=== PATIENT | male | born 1975 | race Caucasian/White ===

== ENCOUNTER 2020-01-15 18:30 | Emergency (ER) | payer OTHER, SELFPAY ==
[2020-01-15 18:35] VITALS: BP 132/88; PULSE 80; RESP 16; TEMP 36.8; O2SAT 99
[2020-01-15 19:09] LABS: Basophils Percent Auto 0.4 % (0.2-1.2); Eosinophils Absolute Auto 0.2 K/mm3 (0-0.3); Hematocrit 38.1 % (42.0-52.0); Hemoglobin 13.2 g/dL (14.0-18.0); Immature Granulocyte Absolute 0.02 K/mm3 (0.00-0.031); Immature Granulocyte Percent A 0.3 % (0-0.5); Lymphocytes Absolute Auto 3.22 K/mm3 (0.9-3.2); Lymphocytes Percent Auto 41.3 % (18.3-44.2); Mean Corpuscular HGB Conc 34.6 g/dl (32-36); Mean Corpuscular Hemoglobin 35.7 pg (26-34); Mean Platelet Volume 9.6 fl (7.4-10.4); Monocytes Absolute Auto 0.9 K/mm3 (0.1-0.6); Monocytes Percent Auto 11.2 % (2.6-8.5); Neutrophils Absolute Auto 3.4 K/mm3 (1.3-6.7); Neutrophils Percent Auto 43.8 % (45.5-73.1); Platelet Count Result 255 k/mm3 (150-375); Red Cell Distribution Width 13.2 % (11.5-14.5); White Blood Count 7.8 K/mm3 (4.5-10.0)
--- NOTE | 2020-01-15 19:15 | ED.PSYCH ---
HPI - Psych General Chief Complaint: Psychiatric Symptoms Stated Complaint: SI Time Seen by Provider: 01/15/20 19:11 Source: patient History of Present Illness HPI Narrative: Pt c/o suicidal thoughts started a few days ago. Pt also states that a group of men are after him, but now denies this. Pt denies homicidal ideations. Pt admits to auditory hallucinations. Relieving factors: none Exacerbating factors: none Context: recent drug abuse Associated symptoms: denies other symptoms Treatments prior to arrival: none Details of plan: no plan Related Data Allergies Allergy/AdvReac Type Severity Reaction Status Date / Time codeine Allergy Mild Verified 04/05/09 20:05 Review of Systems Review of Systems: All systems reviewed & are unremarkable except as noted in HPI and below Constitutional: Constitutional: Denies body ache(s), Denies chills, Denies excessive sweating, Denies fatigue, Denies fever(s), Denies headache(s), Denies lethargy, Denies malaise, Denies weakness and Denies weight loss Eyes: Eyes: Denies blurry vision, Denies change in vision and Denies loss of vision ENT: Denies dizziness, Denies ear discharge, Denies headache(s), Denies lip swelling, Denies epistaxis, Denies nasal congestion, Denies neck pain, Denies throat swelling and Denies tongue swelling Cardiovascular: Cardiovascular: Denies chest pain, Denies chest pain at rest, Denies chest pain with activity, Denies diaphoresis, Denies rapid heart rate, Denies edema, Denies irregular heart rhythm, Denies lightheadedness, Denies palpitations, Denies dyspnea and Denies dyspnea on exertion Respiratory: Respiratory: Denies chest congestion, Denies cough, Denies hemoptysis, Denies dyspnea and Denies dyspnea on exertion Gastrointestinal: Gastrointestinal: Denies abdominal pain, Denies melena, Denies hematochezia, Denies diarrhea, Denies nausea, Denies vomiting and Denies hematemesis Musculoskeletal: Musculoskeletal: Denies abnormal gait, Denies deformity, Denies joint swelling, Denies limited range of motion, Denies neck pain and Denies numbness Neurologic: Denies Abnormal speech present, Denies abnormal gait, Denies confusion, Denies dizziness, Denies headache(s), Denies focal weakness, Denies loss of vision, Denies numbness, Denies Other visual disturbances, Denies Sensory deficit (Neuro) and Denies weakness Psychiatric: Psychiatric: Denies confusion and Denies homicidal ideation Endocrine: Endocrine: Denies cold intolerance, Denies excessive sweating, Denies fatigue, Denies heat intolerance and Denies palpitations Hematologic/Lymphatic: Hematologic/Lymphatic: Denies easy bleeding and Denies easy bruising Allergic/Immunologic: Allergic/Immunologic: Denies lip swelling, Denies throat swelling and Denies tongue swelling Exam Const: General: cooperative, healthy appearing, comfortable, no acute distress, well developed, alert and awake; No confusion Orientation/consciousness: oriented to person, oriented to place, oriented to time, patient oriented x3 and No confusion Limitations: no limitations HENMT: Head: normal to inspection, normocephalic and atraumatic Ears: hearing grossly normal bilaterally, TM normal on the right and TM normal on the left General nose exam: Normal external nose present, Normal nares present and No nasal discharge present Face and sinus: normal facial exam Mouth: Yes Normal oral and palatal mucosa present, Yes lip normal, Yes tongue normal and Yes oropharynx normal Throat: posterior oropharynx normal, tonsils normal and uvula midline Eyes: General: appearance normal, both eyes and all related structures Pupils: Equal, round and reactive pupils present EOM: EOMs intact bilaterally Neck: Neck: normal visual inspection, full ROM, no lymphadenopathy and no meningeal signs Chest: Chest palpation & inspection: normal inspection of the chest Resp: Effort & Inspection: normal respiratory effort, able to speak in complete sentences, no respiratory di
[2020-01-15 19:22] LABS: Alanine Aminotransferase 25 U/L (4-50); Albumin Level 4.5 g/dL (3.5-5.1); Alkaline Phosphatase 147 U/L (38-126); Anion Gap 7 mmol/L (8-16); Aspartate Amino Transferase 27 U/L (17-59); Bilirubin,Total 0.3 mg/dL (0.2-1.3); Blood Urea Nitrogen 20 mg/dL (9-20); Calcium 9.1 mg/dL (8.4-10.2); Carbon Dioxide 26 mmol/L (22-30); Chloride 104 mmol/L (98-107); Estimated CRCL calculation 151 ml/min; Estimated Glomerular Filt Rate > 60; Ethanol < 10 mg/dL (<10); Glucose 87 mg/dL (75-110); Potassium 3.8 mmol/L (3.4-5.0); Sodium 137 mmol/L (137-145)
--- NOTE | 2020-01-15 19:57 | PC.NURSE ---
pt given water to drink to help him provide a urine sample. pt states he cannot give a urine sample because he just went before he came.
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
--- NOTE | 2020-01-15 20:44 | PC.NURSE ---
PT WISHES TO BE DISCHARGED, HE STATES THIS IS A CONFLICT OF INTEREST, I NEED TO GET OUT OF HERE . WHEN I ASKED PATIENT WHAT HIS CONFILICT WAS HE STATES THE LAW ALL AROUND HERE WHILE WAVING HIS ARMS. PT REFUSES TO BE REGISTERED BY PATIENT ACCESS. I EXPLAINED TO PATIENT THAT WE NEEDED TO MEDICALLY CLEAR HIM THEN WE COULD HAVE SOMEONE COME OUT AND TALK TO HIM ABOUT BEING TRANSFERED TO A DIFFERENT HOSPITAL. PT STATES I DID NOT REGISTER, I NEED TO GO, THIS ALL IS A CONFLICT OF INTEREST, ITS ALL AROUND . PT IS RESTING ON THE BED IN 15.
[2020-01-15 21:38] LABS: Acetaminophen < 10 ug/mL (10-30); Salicylate < 1.0 mg/dL (2-20)
[2020-01-15 22:45] LABS: Add Urine Microscopic? YES; Appearance Urine Clear (Clear); Bilirubin Urine Negative (Negative); Blood Urine Negative (Negative); Color Urine Yellow (Yellow); Glucose Urine UA Negative (Negative); Ketones Urine Trace mg/dL (Negative); Leukocyte Esterase Ur Trace LEU/UL (Negative); Mucus Urine Rare /lpf; Nitrate Urine Negative (Negative); Protein Urine Negative (Negative); RBC Urine 0-2 /hpf (0-2); Specific Grav Ur 1.018 (1.001-1.035); Squamous Epithelial Cell Urine Rare /hpf (Few)
[2020-01-15] MEDS: NICOTINE (*PBKC) 21 MG PATCH 1 PATCH TRANSDERM (23:00)
[2020-01-15 23:01] LABS: Barbiturate Screen Urine Negative (Negative); Benzodiazepines Screen Urine Negative (Negative)
[2020-01-15 23:41] LABS: Cannabinoid Screen Urine Negative (Negative); Cocaine Screen Urine Negative (Negative); Methadone Screen Urine Negative (Negative); Opiate Screen Urine Negative (Negative); Phencyclidine Screen Urine Negative (Negative)
[2020-01-15 23:43] LABS: Amphetamine Screen Urine Positive (Negative)
[2020-01-16] MEDS: diphenhydrAMINE HCl INJ 50 MG/ML VIAL 25 MG IM (00:04)
[2020-01-16] MEDS: HALOPERIDOL LACTATE 5 MG/ML VIAL IM (00:04)
[2020-01-16] MEDS: LORazepam INJ (*CRX) 2 MG/ML VIAL IM (00:04)
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
[2020-01-16 11:07] VITALS: BP 128/76; PULSE 72; RESP 15; O2SAT 98
[2020-01-16] MEDS: LORazepam (*CRX) 1 MG TABLET PO (11:19)
[2020-01-16 13:55] LABS: SARS-CoV-2 RNA PCR Negative
== END 2020-01-16 12:14 ==
PROVIDERS: Emergency Medicine; Emergency Provider Emergency Medicine
DX: F23 Brief psychotic disorder (principal); R45.851 Suicidal ideations; Z20.828 Contact with and (suspected) exposure to other viral communicable diseases
CPT/HCPCS: 36415; 80053; 80307; 81001; 84443; 85025; 87635; 96372; 99285; A9270; C9803; J1200; J1630; J2060; U0003

== ENCOUNTER 2022-12-07 19:18 | Emergency (ER) | payer BC, OTHER, SELFPAY ==
--- NOTE | ~2022-12-07 | XR_ITS ---
EXAMINATION: XR chest 2V Exam Date/Time: 12/07/2022 19:43 CDT HISTORY: chest pain Comparison: None. RESULT: Lines, tubes, and devices: None. Lungs and pleura: Clear. Cardiomediastinal silhouette: Unremarkable. Other: No acute osseous or upper abdominal finding. IMPRESSION: No acute cardiopulmonary process. Reviewed, dictated and finalized at location K.
--- NOTE | ~2022-12-07 | CT_ITS ---
EXAMINATION: CT brain wo con DATE: 12/07/2022 23:01 INDICATION: new headache . TECHNIQUE: Computed tomography (CT) of the head was performed without intravenous contrast. The mA wa s adjusted according to patient size. Iterative reconstruction technique was employed. The dose-lengt h product was 681.00 mGy-cm. COMPARISON: 10/11/2009. FINDINGS: No acute intracranial hemorrhage or extra-axial fluid collection. No hydrocephalus, mass, or herniation. No acute ischemic infarct. Unremarkable dural venous sinus attenuation. No acute osseous abnormality. The aerated spaces are clear. IMPRESSION: No acute intracranial process. Reviewed, dictated and finalized at location K.
--- NOTE | 2022-12-07 19:20 | ECG_ITS ---
Measurements Intervals [place] Rate: 76 P: 31 SC: 175 QRS: -27 QRSD: 97 T: -9 QT: 358 QTc: 404 Interpretive Statements SINUS RHYTHM WITH OCCASIONAL SUPRAVENTRICULAR PREMATURE COMPLEXES MINIMAL VOLTAGE CRITERIA FOR LVH, CONSIDER NORMAL VARIANT [MEETS CRITERIA IN ONE OF: R(aVL), S(V1), R(V5), R(V5/V6)+S(V1)] INFERIOR MYOCARDIAL INFARCTION , PROBABLY OLD [40+ ms Q WAVE AND/OR ST/T ABNORMALITY IN II/aVF] NO PREVIOUS ECG AVAILABLE FOR COMPARISON Electronically Signed On 12-08-2022 14:31:53 CDT by Ladonna Sutton M.D.
[2022-12-07 19:35] VITALS: BP 138/98; PULSE 77; RESP 14; TEMP 36.4; O2SAT 100
[2022-12-07 19:44] LABS: Basophils Percent Auto 0.4 % (0.2-1.2); Eosinophils Absolute Auto 0.1 K/mm3 (0-0.3); Eosinophils Percent Auto 1.2 % (0-4.4); Hematocrit 38.5 % (42.0-52.0); Hemoglobin 13.2 g/dL (14.0-18.0); Immature Granulocyte Absolute 0.04 K/mm3 (0.00-0.031); Immature Granulocyte Percent A 0.6 % (0-0.5); Lymphocytes Absolute Auto 1.61 K/mm3 (0.9-3.2); Lymphocytes Percent Auto 23.2 % (18.3-44.2); Mean Corpuscular HGB Conc 34.3 g/dl (32-36); Mean Corpuscular Hemoglobin 34.7 pg (26-34); Mean Corpuscular Volume 101.3 fl (80-100); Mean Platelet Volume 9.4 fl (7.4-10.4); Monocytes Absolute Auto 0.7 K/mm3 (0.1-0.6); Monocytes Percent Auto 10.4 % (2.6-8.5); Neutrophils Absolute Auto 4.5 K/mm3 (1.3-6.7); Neutrophils Percent Auto 64.2 % (45.5-73.1); Platelet Count Result 256 k/mm3 (150-375); Red Cell Distribution Width 14.8 % (11.5-14.5)
[2022-12-07 19:56] LABS: Alanine Aminotransferase 40 U/L (6-50); Albumin Level 4.3 g/dL (3.5-5.1); Alkaline Phosphatase 142 U/L (38-126); Anion Gap 4 mmol/L (8-16); Aspartate Amino Transferase 31 U/L (17-59); Bilirubin,Total 0.5 mg/dL (0.2-1.3); Blood Urea Nitrogen 24 mg/dL (9-20); Calcium 8.8 mg/dL (8.4-10.2); Carbon Dioxide 28 mmol/L (22-30); Chloride 104 mmol/L (98-107); Estimated CRCL calculation 116 ml/min; Estimated Glomerular Filt Rate > 60; Glucose 112 mg/dL (65-110); Lipase 197 U/L (23-300); Partial Thromboplastin Time 25.8 SECONDS (22.3-36.8); Potassium 4.3 mmol/L (3.4-5.0); Sodium 136 mmol/L (137-145)
[2022-12-07 20:07] LABS: Troponin I < 0.012 ng/mL (0.000-0.034)
[2022-12-07 21:33] VITALS: PULSE 71
[2022-12-07 21:36] VITALS: O2SAT 100
[2022-12-07] MEDS: ASPIRIN 81 MG CHEWABLE TABLET 324 MG PO (21:45)
[2022-12-07 22:45] LABS: Troponin I < 0.012 ng/mL (0.000-0.034)
--- NOTE | 2022-12-07 22:52 | ED.CHESTPAIN ---
HPI - Chest Pain General Chief Complaint: Chest Pain <Anamaria Rosales PA-C - Last Filed: 12/08/22 02:58> Stated Complaint: sob, chest pain, feel like going to pass out <Anamaria Rosales PA-C - Last Filed: 12/08/22 02:58> Time Seen by Provider: 12/07/22 22:38 <Anamaria Rosales PA-C - Last Filed: 12/08/22 02:58> History of Present Illness HPI narrative: 47-year-old male reports for evaluation for full complaints including chest pain, shortness of breath, lightheadedness, abdominal distention, nausea. Patient states last night he felt woozy and developed lightheadedness. States today at 1745, he developed chest tightness throughout his anterior chest wall with associated shortness of breath while he was driving. States the chest tightness resolved after 45 minutes and has not returned. States while he had the chest tightness, he felt that he could not take a deep breath. He denies radiating pain, pleuritic pain. Denies aggravating or alleviating factors. He is also reporting a bitemporal headache since last night. States he has not been able to get rid of the headache and has never had a headache like this in his life. He is reporting blurred vision for the past year but no new vision changes. Denies focal numbness or weakness, neck pain, fever, urinary complaints, head or chest trauma, syncope, cough, congestion, palpitations. Patient denies history of COPD but does states he has a remote history of asthma when he was a kid. Denies drugs or alcohol. <Anamaria Rosales PA-C - Last Filed: 12/08/22 02:58> Related Data Allergies/Adverse Reactions: Allergies Allergy/AdvReac Type Severity Reaction Status Date / Time codeine Allergy Mild Verified 04/05/09 20:05 <Anamaria Rosales PA-C - Last Filed: 12/08/22 02:58> Review of Systems Review of Systems: CONSTITUTIONAL: Denies fever, chills EYES: Denies visual changes, redness, or discharge. ENT: Denies rhinorrhea, congestion, sore throat, or otalgia. CARDIOVASCULAR: See HPI RESPIRATORY: See HPI GASTROINTESTINAL: See HPI GENITOURINARY: Denies dysuria or hematuria. SKIN: Denies rash or itching. MUSCULOSKELETAL: Denies back pain, joint pain, or myalgia. NEUROLOGIC: See HPI PSYCHIATRIC: Denies anxiety or depression. <Anamaria Rosales PA-C - Last Filed: 12/08/22 02:58> Exam Narrative: GENERAL: Well-appearing, in no acute distress. Patient resting comfortably in exam bed. HEAD: Normocephalic, atraumatic EYES: PERRLA ENT: Nares clear. Mucous membranes moist. Oropharynx without tonsillar hypertrophy exudate or other lesions. NECK: Supple. No nuchal rigidity CHEST: No respiratory distress. Clear to auscultation, no adventitious breath sounds. HEART: Regular rate and rhythm. No murmur heard. Normal peripheral pulses. ABDOMEN: Soft, nontender, normal active bowel sounds. No CVA tenderness EXTREMITIES: Normal range of motion. No edema. SKIN: Warm, dry, no rash. NEURO: No focal deficits. Alert and oriented x3. Cranial nerves II through XII intact. Strength 5/5 in BUE and BLE. Sensation intact throughout. Normal [id number]. No pronator drift. PSYCH: Normal mood and affect. <Anamaria Rosales PA-C - Last Filed: 12/08/22 02:58> Course ADMIN DIR/PA Physician Supervision This is a was performed by both a physician and an APC. I performed all aspects of the MDM as documented w/ the following additions: 47-year-old male presenting with multiple complaints. All workups were negative. All of his symptoms resolved with a migraine cocktail. Patient was discharged. All questions answered. Patient in agreement w/ disposition. <Julio César Blanton MD - Last Filed: 12/08/22 06:26> Vital Signs Vital signs: Vital Signs Temperature 97.6 F 12/07/22 19:35 Pulse Rate 77 12/07/22 19:35 Respiratory Rate 14 12/07/22 19:35 Blood Pressure 138/98 H 12/07/22 19:35 Pulse Oximetry 100 12/07/22 19:35 Oxygen Delivery Room Air
[2022-12-07] MEDS: ACETAMINOPHEN 500 MG TABLET 1000 MG PO (23:08)
[2022-12-07] MEDS: SODIUM CHLORIDE 0.9% IV 1,000 ML 999 ML IV CONT (23:11)
[2022-12-07] MEDS: diphenhydrAMINE HCl INJ 50 MG/ML VIAL 25 MG IV PUSH (23:14)
[2022-12-07] MEDS: PROCHLORPERAZINE EDISYLATE 10 MG/2 ML VIAL IV PUSH (23:15)
[2022-12-07 23:21] VITALS: PULSE 73
[2022-12-07 23:22] VITALS: PULSE 67; RESP 21; O2SAT 99
[2022-12-08 00:31] LABS: Influenza A QL RT-PCR Negative (Negative); Influenza B QL RT-PCR Negative (Negative); SARS-CoV-2 RNA PCR Negative (Negative)
[2022-12-08 01:11] VITALS: BP 127/90; PULSE 72; RESP 17; TEMP 36.8; O2SAT 100
== END 2022-12-08 01:12 | disposition home or self-care (01) ==
PROVIDERS: Emergency Medicine; Emergency Provider Physician Assistant; PCP Internal Medicine
DX: R07.89 Other chest pain (principal); G44.209 Tension-type headache, unspecified, not intractable; Z20.822 Contact with and (suspected) exposure to COVID-19; I49.1 Atrial premature depolarization; R94.31 Abnormal electrocardiogram [ECG] [EKG]
CPT/HCPCS: 36415; 70450; 71046; 80053; 83690; 84484; 85025; 85610; 85730; 87636; 93005; 96361; 96374; 96375; 99284; A9270; J0780; J1200; J7030

== ENCOUNTER 2024-11-07 11:07 | Emergency (ER) | payer OTHER, SELFPAY ==
[2024-11-07 11:15] VITALS: BP 117/69; PULSE 85; RESP 16; TEMP 36.3; O2SAT 100
--- OUTSIDE RECORDS SUMMARY | 2024-11-07 11:25 | XMS_ITS ---
Author Organization [facility] Address [address] [place] [address] Care Team Providers Care Compressor Battery Pellets Name Role Phone Brennan Pizarro Primary Care Provider [phone] Yara Rodas [phone] REASON FOR VISIT On CRU- New Eval, Last seen 10/14/2022 Social History Sex Assigned At : Social History Observation Description Sex Assigned At Male Encounters Encounter Location Date Provider Diagnosis [address] [address] 08/31/2023 Yara Rodas Plan Of Treatment Next Appt Details Provider Name:Brennan Pizarro , 11/13/2024 02:20:00 PM, [address], [place], [address], Progress Notes * Eliana VALADEZhDOB:1975 (49 yo M)Acc No.[id number]:08/31/2023 UNLOCKED PROGRESS NOTE Patient: Messi PARKER Provider: Ale RODAS, MSN, SEMICONDUCTOR WAFER INSPECTOR-C, PMHNP-BC :1975 A ge:48 Y S ex:Male Date:08/31/2023 [address] [facility] [facility] Pcp:Brennan Pizarro Subjective: * Chief Complaints: * 1 . On CRU- New Eval, Last seen 10/14/2022. * Medical History: Objective: * Vitals: Assessment: Plan: * Treatment: * * Electronic signature of Estelle Rodas on 11/07/2024 at 11:25 AM CDT Sign off status: Pending * Provider: Ale RODAS, MSN, SEMICONDUCTOR WAFER INSPECTOR-C, PMHNP-BC Date: 0 08/31/2023 Generated for Paolo dempsey/Gabriel/Bobby on: 0 11/07/2024 11:25 AM CDT
--- OUTSIDE RECORDS SUMMARY | 2024-11-07 11:25 | XMS_ITS | Patient Health Record ---
Author Organization [facility] Address [address] [place] [address] Care Team Providers Care Physiatrist Name Role Phone Brennan Pizarro Primary Care Provider Allergies Allergen (clinical drug ingredient) Drug/Non Drug Allergy documented on EMR Reaction Allergy Type Onset Date Status codeine Codeine vomiting Drug Allergy Active Reason For Referral No Information Medications Medication SIG (Take, Route, Frequency, Duration) Notes Start Date End Date Status QUEtiapine Fumarate 200 MG 1 tablet Oral ly Once a day; Duration: 30 days 06/20/2024 Active Thiamine HCl 100 MG 1 tablet Orally Once a day Active Folic Acid 1 MG as directed Orally Active Tamsulosin HCl 0.4 MG 1 capsule Orally O nce a day; Duration: 30 days Active Social History Tobacco Use: Social History Observation Description Date Details (start date - stop date) Never Smoker NA - NA Sex Assigned At : Social History Observation Description Sex Assigned At Male PRAPARE Question Answer Notes Date Completed/Updated: 08/27/2023 PRAPARE Score: 1 Tobacco Control (Standard) Question Answer Notes Tobacco use: Nonsmoker Problems Problem Type SNOMED Code ICD Code Onset Dates Problem Status W/U Status Risk Notes Problem Generalized anxiety disorder (95398508) Generalized anxiety disorder (F41.1) Active confirmed Problem Chronic prostatitis (26134250) Chronic prostatitis (N41.1) Active confirmed Problem Alcohol use disorder (0561271090) Alcohol use disorder (F10.99) Active confirmed Problem Polyp of colon (disorder) (82993985) Colon polyps (K63.5) Active confirmed Problem Methamphetamine abuse (227302229) Methamphetamine abuse (F15.10) Active confirmed Problem 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 Problem Major depression with psychotic features (848769597) Major depression with psychotic features (F32.3) Active confirmed Problem Benign prostatic hypertrophy with outflow obstruction (014117408) BPH loc w urin obs/LUTS (N40.1) Active confirmed Vital Signs Heart Rate 83 /min 06/20/2024 Respiratory Rate 16 /min 06/20/2024 Blood pressure diastolic 80 mm Hg 06/20/2024 Oximetry 97 % 06/20/2024 Height 74 in 06/20/2024 Blood pressure systolic 108 mm Hg 06/20/2024 Weight 214.6 lbs 06/20/2024 BMI 27.55 kg/m2 06/20/2024 Encounters Encounter Location Date Provider Diagnosis [address] [place] [address] 06/20/2024 Brennan Pizarro Major depression wit h psychotic features F32.3 ; BPH loc w urin obs/LUTS N40.1 ; Colon polyps K63.5 and Nutritional counseling Z71.[address] [place] [address] 11/10/2023 Brennan Pizarro Assessments Encounter Date Diagnosis (ICD Code) Assessment Notes Treatment Notes Treatment Clinical Notes Section Notes 06/20/2024 Major depression with psychotic features (ICD-10 - F32.3) 06/20/2024 BPH loc w urin obs/LUTS (ICD-10 - N40.1) 06/20/2024 Colon polyps (ICD-10 - K63.5) HE WILL CALL [facility] TO RESCHEDULE HIS COLONOSCOPY. 06/20/2024 Nutritional counseling (ICD-10 - Z71.3) 06/20/2024 Other ANUPAM SIGNED FOR LABS DONE AT [facility] [[email or web address] IN [place] IN 2023. Plan Of Treatment Next Appt Details Provider Name:Brennan Pizarro , 11/13/2024 02:20:00 PM, [address], [place], [address], Insurance Providers Payer Name Payer Address Payer Phone Subscriber Number Group Number Insured Name Patient Relationship to Insured Coverage Start Date Coverage End Date [facility] Attn Claims Department [address] [place] [address] [phone] [id number] Messi Valadez Self - patient is the insured 0 [employer] Attn Claims Department [address] [place] [address] [phone] [id number] Eliana Valadezh Self - patient is the insured 3 Medical (General) History Medical History History ICD Code Stimulant use disorder Bipolar disorder Generalized anxiety disorder Surgical History Surgery Date(Month/Year) spine (tumor) surgery disk/lower back Hospitalization History Reason Date(Month/Year) [facility]- [facility]- [facility]
--- NOTE | 2024-11-07 12:49 | ED_ITS ---
HPI - Ear Problem General Chief complaint: Ear Stated complaint: Ear pain Time Seen by Provider: 11/07/24 11:37 History of Present Illness HPI Narrative: Patient frequently has issues with his R ear, has had infections/tubes in the past; yesterday started having bad pain shows right ear with drainage, having some diminished hearing. Related Data Allergies Allergy/AdvReac Type Severity Reaction Status Date / Time codeine AdvReac Mild Vomiting Verified 11/07/24 11:53 Review of Systems Review of Systems: All systems reviewed & are unremarkable except as noted in HPI and below PMFSH Surgical History Surgical History (Updated 11/10/23 @ 15:31 by Margy Lauren NP) History of appendectomy History of back surgery Family History Family History (Updated 11/10/23 @ 15:31 by Margy Lauren NP) Grandparent Carcinoma of colon Mother Heart disease Social History Social History Smoking status: Never smoker Exam Narrative: EXAMINATION OF ORGAN SYSTEMS/BODY AREAS: Constitutional: Vital signs per nursing GENERAL:[No acute distress, non-toxic appearing.] HEAD: Normal with no signs of head trauma. EYES: EOMI, conjunctiva normal ENT: L TM normal; R TM difficult to visualize, appears ruptured LUNGS: Nonlabored breathing. HEART: [Regular rate and rhythm] ABD: [Soft], [nontender to palpation] EXT: Normal range of motion SKIN: [No rashes or lesions.] NEURO: [Alert and oriented x 3. No gross focal sensory or strength deficits.] PSYCH: Normal affect Course Vital Signs Vital signs: Vital Signs Temperature 97.3 F L 11/07/24 11:15 Pulse Rate 85 11/07/24 11:15 Respiratory Rate 16 11/07/24 11:15 Blood Pressure 117/69 11/07/24 11:15 Pulse Oximetry 100 11/07/24 11:15 Oxygen Delivery Room Air 11/07/24 11:15 Temperature 97.3 F L 11/07/24 11:15 Pulse Rate 85 11/07/24 11:15 Respiratory Rate 16 11/07/24 11:15 Blood Pressure 117/69 11/07/24 11:15 Pulse Oximetry 100 11/07/24 11:15 Oxygen Delivery Room Air 11/07/24 11:15 Medical Decision Making MDM Narrative Medical decision making narrative: 49M p/w R ear pain; had drainage, pain, diminished hearing; TM appears ruptured. No mastoid tenderness or canal tenderness. Will tx for possible AOM w/ rupture given H&P; abx and f/u to ENT given. Vital Signs Vital Signs: Vital Signs Temperature 97.3 F L 11/07/24 11:15 Pulse Rate 85 11/07/24 11:15 Respiratory Rate 16 11/07/24 11:15 Blood Pressure 117/69 11/07/24 11:15 Pulse Oximetry 100 11/07/24 11:15 Oxygen Delivery Room Air 11/07/24 11:15 Temperature 97.3 F L 11/07/24 11:15 Pulse Rate 85 11/07/24 11:15 Respiratory Rate 16 11/07/24 11:15 Blood Pressure 117/69 11/07/24 11:15 Pulse Oximetry 100 11/07/24 11:15 Oxygen Delivery Room Air 11/07/24 11:15 Discharge Plan Discharge Clinical Impression: Infection of right ear Patient Disposition: Home Condition: Stable Instructions: Antibiotic Form, Earache (ED) Additional Instructions: Please follow up with the market research assistant; take the antibiotics and ibuprofen at home and you can always return to the ER for any further issues. Patient Language: Romansh Prescriptions: New amoxicillin-pot clavulanate 875-125 mg tablet 1 tablet PO Q12H Qty: 14 0RF Follow-up/Referrals: Kem Corley MD [Physician] - 2 Days Suresh,Chuck Purcell MD [Primary Care Provider] - Stand Alone Forms: Work/School Release IP
== END 2024-11-07 12:51 | disposition home or self-care (01) ==
PROVIDERS: Emergency Provider Emergency Medicine; PCP Orthopaedic Surgery Orthopaedic Trauma
DX: H66.91 Otitis media, unspecified, right ear (principal)
CPT/HCPCS: 99283; A9270